=== PATIENT | male | born 1980 | race Caucasian/White ===

== ENCOUNTER 2016-06-27 15:42 | Emergency (ER) | payer OTHER ==
--- NOTE | 2016-06-27 16:03 | ED CLINICAL REPORT ---
Clinical Report - Physicians/Mid Levels [place] [address] [place] [address] 06/27/2016 15:42 [id number] Time Seen: 15:48 Jun 27 2016. Arrived- By private vehicle. Historian- patient. HISTORY OF PRESENT ILLNESS Chief Complaint: Injury to the left wrist. The injury happened just prior to arrival. The patient sustained a laceration. Occurred at home. Patient is experiencing mild pain. Patient denies injury to the head or neck. ( Mhqtt-lhqh-squjacsl individual with a recent tetanus immunization sustained injury to his left wrist just prior to arrival. No prior injury to the left wrist. Denies any active bleeding. Incident occurred just prior to arrival. Patient denies any thoughts of self-harm.). REVIEW OF SYSTEMS The patient sustained a laceration. No tingling. All systems otherwise negative, except as recorded above. PAST HISTORY The patient's dominant hand is the right. He has not had a prior injury to the same area. Tetanus immunization status is up-to-date. SOCIAL HISTORY Current every day light tobacco smoker. Alcohol use; consumes beer. PHYSICAL EXAM Appearance: Alert. No acute distress. Head: Head atraumatic. CVS: Normal heart rate and rhythm. Heart sounds normal. Respiratory: No respiratory distress. Breath sounds normal. Skin: Skin warm. Extremities: Left distal ulna: (1.2 cm well approximated lac). Hypothenar eminence, left hand: (full flexion/ extension distally) No tenderness, swelling or ecchymosis. No limited movement of the little finger. Neuro, Vascular and Tendons: Vascular status intact. Capillary refill not prolonged. Motor intact. Neuro: Oriented X 3. PROGRESS AND PROCEDURES PROCEDURES (irrigation left wrist, dermabond applied). Course of Care: patient very stable. Full range of motion no signs of tendon or neurovascular compromise. No signs off foreign body. No signs concerning for fracture. No signs of infectious process. Patient is stable. Patient/family counseled. Disposition: Discharged. Condition: good. CLINICAL IMPRESSION Single superficial laceration.Treatment of laceration not delayed. No infection or foreign body present. INSTRUCTIONS Protect wound and keep wound area clean. (no water for 48 hours). Follow-up: Follow up with your doctor as needed. (Electronically signed by Ilana Wilson P.A.-C 06/27/2016 16:27)
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
--- NOTE | 2016-06-27 16:03 | ED CLINICAL REPORT ---
Clinical Report - Physicians/Mid Levels [place] [address] [place] [address] 06/27/2016 15:42 [id number] Time Seen: 15:48 Jun 27 2016. Arrived- By private vehicle. Historian- patient. HISTORY OF PRESENT ILLNESS Chief Complaint: Injury to the left wrist. The injury happened just prior to arrival. The patient sustained a laceration. Occurred at home. Patient is experiencing mild pain. Patient denies injury to the head or neck. ( Hwcvj-dilt-oetxqlme individual with a recent tetanus immunization sustained injury to his left wrist just prior to arrival. No prior injury to the left wrist. Denies any active bleeding. Incident occurred just prior to arrival. Patient denies any thoughts of self-harm.). REVIEW OF SYSTEMS The patient sustained a laceration. No tingling. All systems otherwise negative, except as recorded above. PAST HISTORY The patient's dominant hand is the right. He has not had a prior injury to the same area. Tetanus immunization status is up-to-date. SOCIAL HISTORY Current every day light tobacco smoker. Alcohol use; consumes beer. PHYSICAL EXAM Appearance: Alert. No acute distress. Head: Head atraumatic. CVS: Normal heart rate and rhythm. Heart sounds normal. Respiratory: No respiratory distress. Breath sounds normal. Skin: Skin warm. Extremities: Left distal ulna: (1.2 cm well approximated lac). Hypothenar eminence, left hand: (full flexion/ extension distally) No tenderness, swelling or ecchymosis. No limited movement of the little finger. Neuro, Vascular and Tendons: Vascular status intact. Capillary refill not prolonged. Motor intact. Neuro: Oriented X 3. PROGRESS AND PROCEDURES PROCEDURES (irrigation left wrist, dermabond applied). Course of Care: patient very stable. Full range of motion no signs of tendon or neurovascular compromise. No signs off foreign body. No signs concerning for fracture. No signs of infectious process. Patient is stable. Patient/family counseled. Disposition: Discharged. Condition: good. CLINICAL IMPRESSION Single superficial laceration.Treatment of laceration not delayed. No infection or foreign body present. INSTRUCTIONS Protect wound and keep wound area clean. (no water for 48 hours). Follow-up: Follow up with your doctor as needed. (Electronically signed by Ilana Wilson P.A.-C 06/27/2016 16:27)
--- NOTE | 2016-06-27 16:32 | ED MAR SUMMARY ---
..... Medication Administration Record [facility] [address] [place] [place], [place] [id number] Patient: JUVENAL BLACK Visit ID: [id number] 36y, M Weight: 99.7 kg Height/Length: 79 in BMI: 24.8 ALLERGIES: No Known Drug Allergy
--- NOTE | 2016-06-27 16:32 | ED MED RECONCILIATION SUMMARY ---
Patient: JUVENAL BLACK Medication Reconciliation Report [facility] VisitID: [id number] [address] [place] [address] 36y, M Registration Date/Time: 06/27/2016 Weight: 99.7 kg Height/Length: 79 in. BMI: 24.8 ALLERGIES: No Known Drug Allergy The patient's Home Medications are listed below: NONE. The source(s) of the original Home Medication information: Not obtained. The following Medications were given to the patient in the Emergency Department: None. The following Medications were prescribed to the patient: None.
--- NOTE | 2016-06-27 16:32 | ED DISCHARGE INSTRUCTIONS ---
Patient: JUVENAL BLACK General Instructions [facility] VisitID: [id number] [place] [address] 36y, M Registration Date/Time: 06/27/2016 Single superficial laceration.Treatment of laceration not delayed. No infection or foreign body present. INSTRUCTIONS Protect wound and keep wound area clean. (no water for 48 hours). Follow-up: Follow up with your doctor as needed. ADDITIONAL INFORMATION Laceration (All Closures) Alaceration is a cut through the skin. This will usually require stitches (sutures) or edgar if it is deep. Minor cuts may be treated with a surgical tape closure orskin glue. Home care The following guidelines will help you care for your laceration at home: Extremity, face, or trunk wounds Keep the wound clean and dry. If a bandage was applied and it becomes wet or dirty, replace it. Otherwise, leave it in place for the first 24 hours. If stitches or edgar were used, clean the wound daily. After removing the bandage, wash the area with soap and water. Use a wet cotton swab to loosen and remove any blood or crust that forms. The doctor may prescribe an antibiotic cream or ointment to prevent infection. Do not stop taking this medication until you have finished the prescribed course or the doctor tells you to stop. The doctor may also prescribe medications for pain. Follow the doctors instructions for taking these medications. You may remove the bandage to shower as usual after the first 24 hours, but do not soak the area in water (no swimming) until the stitches or edgar are removed. If surgical tape was used, keep the area clean and dry. If it becomes wet, blot it dry with a towel. If skin glue was used, do not scratch, rub, or pick at the adhesive film. Do not place tape directly over the film. Do not apply liquid, ointment, or creams to the wound while the film is in place. Do not clean the wound with peroxide and do not apply ointments. Avoid activities that cause heavy sweating until the film has fallen off. Protect the wound from prolonged exposure to sunlight or tanning lamps. You may shower as usual but do not soak the wound in water (no baths or swimming). The film will fall off by itself in 510 days. Scalp wounds During the first two days, you may carefully rinse your hair in the shower to remove blood, glass or dirt particles. After two days, you may shower and shampoo your hair normally. Do not soak your scalp in the tub or go swimming until the stitches or edgar have been removed. Talk with your doctor before applying any antibiotic ointment to the wound. Mouth wounds Eat soft foods to reduce pain. If the cut is inside of your mouth, clean by rinsing after each meal and at bedtime with a mixture of equal parts water and hydrogen peroxide (do not swallow!). Or, you can use a cotton swab to directly apply hydrogen peroxide onto the cut. Mouth wounds can be painful when eating. You may use an [id number] local numbing solution for pain relief. If this is not available, you may use any numbing solution for teething babies. You may apply this directly to the sores with a cotton-tip swab or with your finger. Follow-up care Follow up with your health care provider. Most skin wounds heal within ten days. Mouth and facial wounds heal within five days. However, even with proper treatment, a wound infection may sometimes occur. Therefore, you should check the wound daily for signs of infection listed below. Stitches should be removed from the face within five days; stitches and edgar should be removed from other parts of the body within 714 days. If dissolving stitches were used in the mouth, these will fall out or dissolve without the need for removal. If tape closures were used, remove them yourself if they have not fallen off after 7 days. Ifskin glue was used, the film will fall off by itself in 510 days. When to seek medical care Get prompt medical attention if any of these occur: Bleeding not controlled by direct pressure Signs of infection, including increasing pain in the wound, increasing wound redness or swelling, or pus coming from the wound Fever of 100.4F (38C) or higher, or as directed by your health care provider Stitches or edgar come apart or fall out or surgical tape falls off before 7 days Wound edges re-open Laceration(Skin Glue) A laceration is a cut through the skin. You have a laceration that has been closed with a type of skin glue. Home Care Medications: Acetaminophen (Tylenol) or ibuprofen (Motrin, Advil) may be taken for pain, unless another pain medicine was prescribed. NOTE: If you have chronic liver or kidney disease or ever had a stomach ulcer or GI bleeding, talk with your doctor before using these medications. General Care: Keep the wound clean and dry. You may shower or bathe as usual, but do not use soaps, lotions, or ointments on the wound area. Do not scrub the wound. After bathing, pat the wound dry with a soft towel. If a bandage was applied and it becomes wet or dirty, replace it. Otherwise, change the bandage every 24 hours. Do not scratch, rub, or pick at the film. Do not place tape directly over the film. Do not apply liquids (such as peroxide), ointments, or creams to the wound while the film is in place. Most skin wounds heal without problems. However, an infection sometimes occurs despite proper treatment. Therefore, watch for the signs of infection listed below. Follow Up as directed by the doctor or our staff. The skin glue film will fall off naturally in 5 to 10 days. Get Prompt Medical Attention if any of the following occur: Signs of infection: Fever of 100.4F (38C) or higher, or as directed by your healthcare provider Increasing pain in the wound Increasing redness or swelling Pus coming from the wound Wound bleeds more than a small amount or bleeding doesnt stop Wound edges come apart You feel numbness or weakness in the wound area that doesnt go away You have been given the following additional information: Laceration, All Laceration, Extremity (Skin Glue) (Electronically signed by Ilana Wilson P.A.-C 06/27/2016 16:27)
--- NOTE | 2016-06-27 16:32 | ED MAR SUMMARY ---
..... Medication Administration Record [facility] [address] [place], [place] [id number] Patient: JUVENAL BLACK Visit ID: [id number] 36y, M Weight: 99.7 kg Height/Length: 79 in BMI: 24.8 ALLERGIES: No Known Drug Allergy
--- NOTE | 2016-06-27 16:32 | ED MED RECONCILIATION SUMMARY ---
Patient: JUVENAL BLACK Medication Reconciliation Report [facility] VisitID: [id number] [address] [place] [address] 36y, M Registration Date/Time: 06/27/2016 Weight: 99.7 kg Height/Length: 79 in. BMI: 24.8 ALLERGIES: No Known Drug Allergy The patient's Home Medications are listed below: NONE. The source(s) of the original Home Medication information: Not obtained. The following Medications were given to the patient in the Emergency Department: None. The following Medications were prescribed to the patient: None.
== END 2016-06-27 16:12 | disposition home or self-care (01) ==
LOC: ED SRH 15:42
DX: S61.512A Laceration without foreign body of left wrist, initial encounter (principal); W26.0XXA Contact with knife, initial encounter; Y92.009 Unspecified place in unspecified non-institutional (private) residence as the place of occurrence of the external cause; Z72.0 Tobacco use
CPT/HCPCS: 82708